=== PATIENT | male | born 1975 | race Caucasian/White ===

== ENCOUNTER 2022-07-03 16:37 | Inpatient (IN) | payer BC ==
[2022-07-03] MEDS ORDERED: Cefepime 2 GM VIAL ONE (18:08)
[2022-07-03] MEDS ORDERED: Morphine 4 MG/ML VIAL ONE (18:08)
[2022-07-03] MEDS ORDERED: Iopamidol 300 61% 100 ML VIAL FS ONE (18:17)
[2022-07-03 18:18] LABS: #Eosinphils 0.2 10x3/uL (0.0-0.5); #Neutrophils 7.5 10x3/uL (1.5-8.4); %Basophils 0.4 % (0.0-2.0); %Eosinophils 2.1 % (0.0-6.0); %Lymphocytes 17.6 % (18.0-47.0); %Monocytes 9.4 % (0.0-10.0); %Neutrophils 70.3 % (40.0-75.0); Mean Corpuscular HGB CONC 34.6 g/dL (32.0-36.0); Mean Corpuscular Hemoglobin 31.5 pg (27.0-33.0); Platelet Count 222 10x3/uL (150-450); RBC Distribution Width 12.4 % (11.5-14.5); Red Blood Cell (RBC) Count 4.45 10x6/uL (4.32-5.72); White Blood Cell (WBC) Count 10.7 10x3/uL (3.5-10.5)
[2022-07-03 18:38] LABS: ALT (SGPT) 30 U/L (8-55); AST (SGOT) 29 U/L (5-34); Albumin 4.5 g/dL (3.5-5.0); Alkaline Phosphatase 86 U/L (40-110); Anion Gap 14 mmol/L (10-20); BUN (Urea Nitrogen) 14 mg/dL (8.9-20.6); Bilirubin, Total 1.3 mg/dL (0.2-1.2); Calc. Creatinine Clearance 0 mL/min (70-130); Calcium 8.9 mg/dL (7.8-10.44); Carbon Dioxide 24 mmol/L (22-29); Chloride 104 mmol/L (98-107); Estimated GFR 95; Globulin 2.3 g/dL (2.4-3.5); Glucose 94 mg/dL (70-105); Protein, Total 6.8 g/dL (6.0-8.3); Sodium 138 mmol/L (136-145)
[2022-07-03] MEDS ORDERED: Vancomycin 1 GM VIAL ONE (19:37)
[2022-07-03] MEDS ORDERED: Senokot S 8.6-50 MG TAB PO PRN (20:39)
[2022-07-03] MEDS ORDERED: Calcium Carbonate 500 MG ChewTAB PO PRN (20:39)
[2022-07-03] MEDS ORDERED: Guaifenesin DM 100-10/5 ML UDCUP PO PRN (20:39)
[2022-07-03] MEDS ORDERED: Acetaminophen 325 MG TAB PO PRN (20:39)
[2022-07-03 22:14] VITALS: BMI 26.1
[2022-07-03] MEDS ORDERED: Pharmacy to Dose ABX/VANCOMYCIN IVPB PRN (22:19)
[2022-07-03] MEDS: HYDROcodone/Acetaminophen 5/325 mg Tablet PO PRN (22:27)
[2022-07-03] MEDS: Morphine 2 MG/ML VIAL SLOW IVP PRN (22:49)
[2022-07-03] MEDS: Zolpidem Tartrate 5 MG TAB PO PRN (23:00)
[2022-07-04] MEDS: HYDROcodone/Acetaminophen 5/325 mg Tablet PO PRN ×3 (03:53→18:11)
[2022-07-04] MEDS: Morphine 2 MG/ML VIAL SLOW IVP PRN ×4 (04:54→23:12)
[2022-07-04] MEDS: Lactated Ringer's 1,000 ML IV SCH ×3 (06:08→21:08)
[2022-07-04] MEDS: Cefepime 1 GM in Sodium Chloride 0.9% 100 ML IVPB SCH ×2 (06:09→18:12)
[2022-07-04 07:10] LABS: #Eosinphils 0.2 10x3/uL (0.0-0.5); #Monocytes 0.6 10x3/uL (0.0-1.1); #Neutrophils 5.5 10x3/uL (1.5-8.4); %Basophils 0.4 % (0.0-2.0); %Eosinophils 3.2 % (0.0-6.0); %Lymphocytes 14.4 % (18.0-47.0); %Monocytes 8.5 % (0.0-10.0); %Neutrophils 73.2 % (40.0-75.0); Hemoglobin 14.2 g/dL (13.5-17.5); Mean Corpuscular HGB CONC 34.1 g/dL (32.0-36.0); Mean Corpuscular Hemoglobin 31.2 pg (27.0-33.0); Mean Corpuscular Volume 91.6 fl (81.2-95.1); Mean Platelet Volume 8.8 fl (7.4-10.4); Platelet Count 201 10x3/uL (150-450); RBC Distribution Width 12.4 % (11.5-14.5); Red Blood Cell (RBC) Count 4.55 10x6/uL (4.32-5.72); White Blood Cell (WBC) Count 7.6 10x3/uL (3.5-10.5)
[2022-07-04 07:26] LABS: Anion Gap 10 mmol/L (10-20); BUN (Urea Nitrogen) 9 mg/dL (8.9-20.6); CRP (Inflammatory) 5.52 mg/dL (= or < 0.5); Calc. Creatinine Clearance 153 mL/min (70-130); Calcium 8.6 mg/dL (7.8-10.44); Carbon Dioxide 26 mmol/L (22-29); Chloride 108 mmol/L (98-107); Estimated GFR 109; Glucose 102 mg/dL (70-105); Potassium 5.3 mmol/L (3.5-5.1); Sodium 139 mmol/L (136-145)
[2022-07-04] MEDS: Ondansetron PF 4 MG/2 ML Vial IVP PRN ×3 (08:57→21:58)
[2022-07-04] MEDS: Vancomycin 1.5 GRAM/300 ML BAG 1.5 GM in Premix Bag 1 BAG IVPB SCH ×2 (08:58→20:48)
[2022-07-04] MEDS: HYDROcodone/Acetaminophen 10/325 mg Tablet PO PRN (20:53)
[2022-07-04] MEDS: Zolpidem Tartrate 5 MG TAB PO PRN (21:09)
[2022-07-05] MEDS: Morphine 2 MG/ML VIAL SLOW IVP PRN ×4 (03:10→20:57)
[2022-07-05] MEDS: HYDROcodone/Acetaminophen 10/325 mg Tablet PO PRN ×4 (03:49→17:30)
[2022-07-05] MEDS: Lactated Ringer's 1,000 ML IV SCH ×3 (04:46→20:52)
[2022-07-05] MEDS: Cefepime 1 GM in Sodium Chloride 0.9% 100 ML IVPB SCH ×2 (05:55→18:12)
[2022-07-05 07:19] LABS: Vancomycin, Trough 14.9 ug/mL
[2022-07-05] MEDS: Vancomycin 1.5 GRAM/300 ML BAG 1.5 GM in Premix Bag 1 BAG IVPB SCH ×2 (08:24→20:53)
[2022-07-05] MEDS ORDERED: Morphine 4 MG/ML VIAL SLOW IVP SCH (18:00)
[2022-07-05] MEDS: Ketorolac Tromethamine 30 MG/ML VIAL IVP PRN ×2 (18:08→23:42)
[2022-07-05] MEDS: Zolpidem Tartrate 5 MG TAB PO PRN (20:57)
[2022-07-05] MEDS: Ondansetron PF 4 MG/2 ML Vial IVP PRN (20:58)
[2022-07-06] MEDS: Morphine 2 MG/ML VIAL SLOW IVP PRN ×5 (02:26→21:48)
[2022-07-06] MEDS: Lactated Ringer's 1,000 ML IV SCH ×3 (05:30→23:30)
[2022-07-06] MEDS: Cefepime 1 GM in Sodium Chloride 0.9% 100 ML IVPB SCH ×2 (05:30→17:37)
[2022-07-06] MEDS: HYDROcodone/Acetaminophen 10/325 mg Tablet PO PRN ×4 (05:31→20:04)
[2022-07-06] MEDS: Vancomycin 1.5 GRAM/300 ML BAG 1.5 GM in Premix Bag 1 BAG IVPB SCH ×2 (08:17→20:11)
[2022-07-06] MEDS: Ketorolac Tromethamine 30 MG/ML VIAL IVP PRN (08:18)
[2022-07-06] MEDS ORDERED: Ketoconazole 2% Cream 15 gm Tube TOP SCH (09:00)
[2022-07-06 15:53] LABS: #Eosinphils 0.3 10x3/uL (0.0-0.5); #Monocytes 0.5 10x3/uL (0.0-1.1); #Neutrophils 4.9 10x3/uL (1.5-8.4); %Basophils 0.4 % (0.0-2.0); %Eosinophils 3.6 % (0.0-6.0); %Lymphocytes 18.8 % (18.0-47.0); %Monocytes 6.8 % (0.0-10.0); %Neutrophils 70.1 % (40.0-75.0); Hemoglobin 14.1 g/dL (13.5-17.5); Mean Corpuscular HGB CONC 34.8 g/dL (32.0-36.0); Mean Corpuscular Hemoglobin 31.8 pg (27.0-33.0); Mean Corpuscular Volume 91.4 fl (81.2-95.1); Mean Platelet Volume 9.1 fl (7.4-10.4); Platelet Count 217 10x3/uL (150-450); Red Blood Cell (RBC) Count 4.43 10x6/uL (4.32-5.72); White Blood Cell (WBC) Count 6.9 10x3/uL (3.5-10.5)
[2022-07-06 15:58] LABS: ALT (SGPT) 43 U/L (8-55); AST (SGOT) 27 U/L (5-34); Albumin 3.8 g/dL (3.5-5.0); Alkaline Phosphatase 86 U/L (40-110); Anion Gap 13 mmol/L (10-20); BUN (Urea Nitrogen) 13 mg/dL (8.9-20.6); Bilirubin, Total 0.4 mg/dL (0.2-1.2); Calc. Creatinine Clearance 150 mL/min (70-130); Calcium 8.9 mg/dL (7.8-10.44); Carbon Dioxide 27 mmol/L (22-29); Chloride 104 mmol/L (98-107); Estimated GFR 108; Glucose 102 mg/dL (70-105); Potassium 4.5 mmol/L (3.5-5.1); Protein, Total 5.8 g/dL (6.0-8.3); Sodium 139 mmol/L (136-145)
[2022-07-06] MEDS ORDERED: Sodium Chloride 0.9% 100 ML ONE (17:25)
[2022-07-06] MEDS: Ondansetron PF 4 MG/2 ML Vial IVP PRN (20:06)
[2022-07-06] MEDS: Zolpidem Tartrate 5 MG TAB PO PRN (22:15)
[2022-07-07] MEDS: HYDROcodone/Acetaminophen 10/325 mg Tablet PO PRN ×2 (00:03→05:13)
[2022-07-07] MEDS: Morphine 2 MG/ML VIAL SLOW IVP PRN ×2 (03:08→07:03)
[2022-07-07 07:20] LABS: Vancomycin, Trough 14.5 ug/mL
[2022-07-07] MEDS: Cefepime 1 GM in Sodium Chloride 0.9% 100 ML IVPB SCH (07:25)
[2022-07-07 08:42] VITALS: BP 131/67; TEMP 98.5
[2022-07-07] MEDS ORDERED: Ketoconazole 2% Cream 15 gm Tube TOP SCH (09:00)
== END 2022-07-07 09:51 | disposition home or self-care (01) | DRG 540 ==
LOC: CSHERS 16:37 → CSHTELE 22:11 → OBSVTOIN 07-04 05:28
PROVIDERS: ADMIT Student in an Organized Health Care Education/Training Program; ATTEND Hospitalist
DX: M86.172 Other acute osteomyelitis, left ankle and foot (principal); L02.612 Cutaneous abscess of left foot; L03.116 Cellulitis of left lower limb; M20.42 Other hammer toe(s) (acquired), left foot; L97.521 Non-pressure chronic ulcer of other part of left foot limited to breakdown of skin; Z20.822 Contact with and (suspected) exposure to COVID-19; Z96.641 Presence of right artificial hip joint; Z79.899 Other long term (current) drug therapy; Z86.711 Personal history of pulmonary embolism
CPT/HCPCS: 36415; 80048; 80053; 80202; 82565; 83605; 84520; 85025; 85652; 86140; 87040; 96374; 96375; 96376; G0378; J0692; J1650; J1885; J2270; J2272; J2405; J3370; J3490; J7120; Q9967; U0003; U0005